=== PATIENT | male | born 1965 | race Caucasian/White ===

== ENCOUNTER 2017-08-06 10:45 | Emergency (ER) | payer OTHER ==
[~2017-08-06] VITALS: Ht 188 cm; Wt 76.2 kg
[2017-08-06] MEDS ORDERED: SODIUM CHLORIDE 0.9% 1,000ML IVBOLUS ONE (11:30)
[2017-08-06] MEDS ORDERED: METOCLOPRAMIDE 5 MG/ML, 2ML IVPush ONE (11:30)
[2017-08-06] MEDS ORDERED: DIPHENHYDRAMINE 50 MG/ML, 1ML IVPush ONE (11:30)
[2017-08-06] MEDS ORDERED: KETOROLAC 30 MG/1 ML IVPush ONE (13:00)
[2017-08-06] MEDS ORDERED: SODIUM CHLORIDE FLUSH 10ML SYR IVF ONE (13:00)
[2017-08-06 13:30] VITALS: BP 133/74
== END 2017-08-06 14:03 | disposition home or self-care (01) ==
LOC: ED 12:04
DX: G43.909 Migraine, unspecified, not intractable, without status migrainosus (principal); Z87.891 Personal history of nicotine dependence
CPT/HCPCS: 96361; 96374; 96375; 99285; J1200; J1885; J2765; J7030

== ENCOUNTER 2017-08-12 19:50 | Emergency (ER) | payer OTHER ==
[~2017-08-12] VITALS: Ht 188 cm; Wt 77.0 kg
[2017-08-12 19:52] VITALS: BP 124/91
== END 2017-08-12 20:37 | disposition home or self-care (01) ==
LOC: ED 20:01
DX: S52.91XA Unspecified fracture of right forearm, initial encounter for closed fracture (principal); F17.210 Nicotine dependence, cigarettes, uncomplicated; G43.909 Migraine, unspecified, not intractable, without status migrainosus; W11.XXXA Fall on and from ladder, initial encounter; Y93.89 Activity, other specified; Y92.89 Other specified places as the place of occurrence of the external cause; Y99.8 Other external cause status
CPT/HCPCS: 99282

== ENCOUNTER 2017-10-08 17:19 | Emergency (ER) | payer OTHER ==
[~2017-10-08] VITALS: Ht 188 cm; Wt 99.2 kg
[2017-10-08] MEDS ORDERED: SODIUM CHLORIDE 0.9% 1,000ML IVBOLUS ONE (18:30)
[2017-10-08] MEDS ORDERED: DIPHENHYDRAMINE 50 MG/ML, 1ML IVPush ONE (18:30)
[2017-10-08] MEDS ORDERED: METOCLOPRAMIDE 5 MG/ML, 2ML IVPush ONE (18:30)
[2017-10-08] MEDS ORDERED: DIPHENHYDRAMINE 50 MG/ML, 1ML ONE (18:45)
[2017-10-08] MEDS ORDERED: METOCLOPRAMIDE 5 MG/ML, 2ML ONE (18:45)
[2017-10-08] MEDS ORDERED: KETOROLAC 30 MG/1 ML ONE (18:45)
[2017-10-08] MEDS ORDERED: SODIUM CHLORIDE FLUSH 10ML SYR IVF ONE (19:00)
[2017-10-08] MEDS ORDERED: KETOROLAC 30 MG/1 ML IVPush ONE (19:00)
[2017-10-08 20:16] VITALS: BP 106/68
== END 2017-10-08 20:18 | disposition home or self-care (01) ==
LOC: ED 19:04
DX: G43.909 Migraine, unspecified, not intractable, without status migrainosus (principal)
CPT/HCPCS: 70450; 96361; 96374; 96375; 99284; J1200; J1885; J2765; J7030

== ENCOUNTER 2017-12-03 17:27 | Emergency (ER) | payer SELFPAY ==
[~2017-12-03] VITALS: Ht 188 cm; Wt 77.8 kg
[2017-12-03 17:33] VITALS: BP 125/80
[2017-12-03] MEDS ORDERED: SUMA100T3 PO (18:39)
[2017-12-03] MEDS ORDERED: IBUPROFEN 200 MG TABLET ONE (19:52)
[2017-12-03] MEDS ORDERED: IBUPROFEN 200 MG TABLET PO ONE (20:00)
== END 2017-12-03 20:10 | disposition home or self-care (01) ==
LOC: ED 19:50
DX: S16.1XXA Strain of muscle, fascia and tendon at neck level, initial encounter (principal); G89.11 Acute pain due to trauma; V43.52XA Car driver injured in collision with other type car in traffic accident, initial encounter; Y93.89 Activity, other specified; Y92.410 Unspecified street and highway as the place of occurrence of the external cause; Y99.8 Other external cause status
CPT/HCPCS: 71046; 72125; 99284

== ENCOUNTER 2018-02-14 23:59 | Emergency (ER) | payer SELFPAY ==
[~2018-02-14] VITALS: Ht 182.9 cm; Wt 79.7 kg
[~2018-02-14 23:59] MED LIST: SUMA100T3 PO
[2018-02-15] VITALS: BP 130/82
[2018-02-15] MEDS ORDERED: PROCHLORPERAZINE 5 MG/ML, 2ML ONE (00:20)
[2018-02-15] MEDS ORDERED: DIPHENHYDRAMINE 50 MG/ML, 1ML ONE (00:20)
[2018-02-15] MEDS ORDERED: KETOROLAC 30 MG/1 ML ONE (00:20)
[2018-02-15] MEDS ORDERED: KETOROLAC 30 MG/1 ML IVPush ONE (00:30)
[2018-02-15] MEDS ORDERED: DIPHENHYDRAMINE 50 MG/ML, 1ML IVPush ONE (00:30)
[2018-02-15] MEDS ORDERED: PROCHLORPERAZINE 5 MG/ML, 2ML IVPush ONE (00:30)
== END 2018-02-15 01:20 | disposition home or self-care (01) ==
LOC: ED 23:59
DX: G43.009 Migraine without aura, not intractable, without status migrainosus (principal)
CPT/HCPCS: 96374; 96375; 99284; J0780; J1200; J1885

== ENCOUNTER 2018-03-21 17:14 | Emergency (ER) | payer SELFPAY ==
[~2018-03-21] VITALS: Ht 188 cm; Wt 76.7 kg
[2018-03-21] MEDS ORDERED: DIPHENHYDRAMINE 50 MG/ML, 1ML ONE (18:28)
[2018-03-21] MEDS ORDERED: KETOROLAC 30 MG/1 ML ONE (18:28)
[2018-03-21] MEDS ORDERED: METOCLOPRAMIDE 5 MG/ML, 2ML ONE (18:28)
[2018-03-21] MEDS ORDERED: METOCLOPRAMIDE 5 MG/ML, 2ML IVPush ONE (18:30)
[2018-03-21] MEDS ORDERED: DEXAMETHASONE 10 MG in SODIUM CHLORIDE 0.9% 50 ML IV ONE (18:30)
[2018-03-21] MEDS ORDERED: KETOROLAC 30 MG/1 ML IVPush ONE (18:30)
[2018-03-21] MEDS ORDERED: SODIUM CHLORIDE FLUSH 10ML SYR IVF ONE (18:30)
[2018-03-21] MEDS ORDERED: SODIUM CHLORIDE 0.9% 1,000ML IVBOLUS ONE (18:30)
[2018-03-21] MEDS ORDERED: DEXAMETHASONE 4 MG/ML, 1ML IV ONE (18:30)
[2018-03-21] MEDS ORDERED: DIPHENHYDRAMINE 50 MG/ML, 1ML IVPush ONE (18:30)
[2018-03-21 18:59] VITALS: BP 126/86
== END 2018-03-21 19:26 | disposition home or self-care (01) ==
LOC: ED 19:00
DX: G43.001 Migraine without aura, not intractable, with status migrainosus (principal)
CPT/HCPCS: 96365; 96375; 99284; J1100; J1200; J1885; J2765; J7030

== ENCOUNTER 2018-08-20 20:26 | Emergency (ER) | payer MEDICAID, OTHER ==
[~2018-08-20] VITALS: Ht 188 cm; Wt 76.6 kg
[2018-08-20 20:39] VITALS: BP 132/78
== END 2018-08-20 22:11 | disposition home or self-care (01) ==
LOC: ED 22:05
DX: S83.411A Sprain of medial collateral ligament of right knee, initial encounter (principal); G43.909 Migraine, unspecified, not intractable, without status migrainosus; W19.XXXA Unspecified fall, initial encounter; Y93.89 Activity, other specified; Y92.009 Unspecified place in unspecified non-institutional (private) residence as the place of occurrence of the external cause; Y99.8 Other external cause status
CPT/HCPCS: 99283

== ENCOUNTER 2021-05-26 16:48 | Emergency (ER) | payer MEDICAID ==
[~2021-05-26] VITALS: Ht 188 cm; Wt 90.3 kg
--- NOTE | 2021-05-26 16:52 | NUR ---
NOT IN LOBBY X1
[2021-05-26 17:03] VITALS: BP 141/91
--- NOTE | 2021-05-26 20:35 | NUR ---
NA X2
--- NOTE | 2021-05-26 20:57 | NUR ---
NA X3
== END 2021-05-26 21:00 | disposition left against medical advice (07) ==
LOC: ED 16:53
DX: Z53.21 Procedure and treatment not carried out due to patient leaving prior to being seen by health care provider (principal); R94.31 Abnormal electrocardiogram [ECG] [EKG]
CPT/HCPCS: 93005